=== PATIENT | male | born 1985 | race Caucasian/White ===

== ENCOUNTER 2016-08-03 15:58 | Inpatient (IN) | payer BC ==
[~2016-08-03] VITALS: Ht 167.6 cm; Wt 133.8 kg
--- NOTE | 2016-08-03 15:58 | NUR ---
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 PT AAO X4, AMB WITH STEADY GAIT. RR EVEN AND UNLABORED. PT PLACED IN GOWN AND MONITOR, CONTINUE TO MONITOR.
[2016-08-03] MEDS ORDERED: ONDANSETRON HCL/PF 4 MG/2 ML VIAL IVP ONE (16:30)
[2016-08-03] MEDS ORDERED: IV NS 0.9% 1,000 ML BAG IV ONE (16:30)
[2016-08-03] MEDS ORDERED: ONDANSETRON HCL/PF 4 MG/2 ML VIAL ONE (16:33)
[2016-08-03] MEDS ORDERED: IV NS 0.9% 1,000 ML ONE (16:33)
[2016-08-03] MEDS ORDERED: IV SET PRIMARY 1 EA INFUS.SET MC ONE (16:33)
[2016-08-03 16:49] LABS: BASOPHILS % (AUTO) 0.4 % (0.0-2.0); EOSINOPHILS # (AUTO) 0.3 /CMM (0.0-0.7); EOSINOPHILS % (AUTO) 3.4 % (0.0-6.0); HEMATOCRIT 43 % (39-51); HEMOGLOBIN 13.7 g/dL (13.5-17.5); LYMPHOCYTES # (AUTO) 1.6 /CMM (0.8-4.8); LYMPHOCYTES % (AUTO) 15.9 % (20.0-44.0); MEAN CORPUSCULAR HEMOGLOBIN 25 PG (26.0-33.0); MEAN CORPUSCULAR HGB CONC 32 g/dl (31.0-36.0); MEAN CORPUSCULAR VOLUME 79 fL (80-96); MONOCYTES # (AUTO) 0.3 /CMM (0.1-1.30); NEUTROPHILS # (AUTO) 7.6 /CMM (1.8-8.9); NEUTROPHILS % (AUTO) 77.3 % (43.0-81.0); PLATELET COUNT (AUTO) 194 /CMM (150-450); RDW COEFFICIENT OF VARIATION 14.7 (11.5-15.0); RED BLOOD CELL COUNT(AUTO) 5.42 MIL/uL (4.5-6.0); WHITE BLOOD COUNT (AUTO) 9.8 K/uL (4.3-11.0)
[2016-08-03] MEDS ORDERED: MECLIZINE HCL 25 MG TABLET PO STA (16:57)
[2016-08-03 16:58] LABS: CALCIUM, SERUM 9.8 mg/dL (8.5-10.1); CREATININE 1.4 mg/dL (0.6-1.3); POTASSIUM 3.5 mmol/L (3.5-5.1)
[2016-08-03] MEDS ORDERED: MECLIZINE HCL 25 MG TABLET ONE (17:00)
[2016-08-03 17:04] LABS: ALBUMIN 3.8 g/dL (3.4-5.0); BILIRUBIN,DIRECT 0.1 mg/dL (0.0-0.2); BILIRUBIN,TOTAL 0.3 mg/dL (0.2-1.0); TOTAL PROTEIN, SERUM 6.8 g/dL (6.4-8.2)
[2016-08-03] MEDS ORDERED: DIAZEPAM 5 MG/ML 2 ML DISP.SYRIN IV STA (18:03)
[2016-08-03] MEDS ORDERED: DIAZEPAM 5 MG/ML 2 ML DISP.SYRIN ONE (18:27)
[2016-08-03] MEDS ORDERED: DIAZEPAM 5 MG/ML 2 ML DISP.SYRIN IV ONE (18:30)
--- NOTE | 2016-08-03 18:36 | NUR ---
PT RESTING COMFORTABLY WITH EYES CLOSED. CONTINUE TO MONITOR CLOSELY
[2016-08-03] MEDS ORDERED: hydrALAZINE HCL IV 20 MG VIAL ONE ×2 (18:51→19:43)
[2016-08-03] MEDS ORDERED: hydrALAZINE HCL IV 20 MG VIAL IV STA ×2 (18:52→19:24)
[2016-08-03] MEDS ORDERED: IOHEXOL-350 100 ML VIAL IV ONE (19:11)
[2016-08-03] MEDS ORDERED: IV NS 0.9% 250 ML IV ONE (19:11)
--- NOTE | 2016-08-03 19:15 | NUR ---
RECEIVED REPORT FROM YOANDY MISHRA. CALLED RADIOLOGY FOR F/U.
--- NOTE | 2016-08-03 19:23 | NUR ---
PT TO CT.
[2016-08-03] MEDS ORDERED: METOCLOPRAMIDE HCL 10 MG/2 ML VIAL IV STA (19:26)
--- NOTE | 2016-08-03 19:30 | NUR ---
CAN NOT DO CT SCAN AT THIS TIME. PT IS VOMITING, ER WILL CALL WHEN READY.
[2016-08-03] MEDS ORDERED: METOCLOPRAMIDE HCL 10 MG/2 ML VIAL ONE (19:43)
--- NOTE | 2016-08-03 19:45 | NUR ---
PT RETURNED FROM CT.
--- NOTE | 2016-08-03 20:15 | NUR ---
PT TO CT.
--- NOTE | 2016-08-03 20:24 | NUR ---
PT RETURNED FROM CT.
--- NOTE | 2016-08-03 20:43 | NUR ---
Patient is resting comfortably in bed with eyes closed. Easily aroused. VSS
--- NOTE | 2016-08-03 21:13 | NUR ---
PAGED HOME [facility]NA [facility] DR MAINOR HANNAH
--- NOTE | 2016-08-03 21:15 | NUR ---
CALLED NURSING SUP FOR [facility]
--- NOTE | 2016-08-03 21:27 | NUR ---
PT GOING TO 117-2 [facility]
[2016-08-03] MEDS ORDERED: MAG HYDROX/AL HYDROX/SIMETH 30 ML UDC PO PRN (21:30)
[2016-08-03] MEDS ORDERED: ACETAMINOPHEN 325 MG TABLET PO PRN (21:30)
[2016-08-03] MEDS ORDERED: HYDROCODONE/APAP 5/325MG 1 EACH TABLET PO PRN (21:30)
[2016-08-03] MEDS ORDERED: MORPHINE SULFATE INJ 2 MG/ML DISP.SYRIN IV PRN (21:30)
[2016-08-03] MEDS ORDERED: Z GUARD REMEDY 2 OZ OINT TP PRN (21:30)
[2016-08-03] MEDS ORDERED: ZOLPIDEM TARTRATE 5 MG TABLET PO PRN (21:30)
[2016-08-03] MEDS ORDERED: MAGNESIUM HYDROXIDE 30 ML UDC PO PRN (21:30)
--- NOTE | 2016-08-03 21:30 | NUR ---
ROOM CHANGED TO [facility] 108
--- NOTE | 2016-08-03 22:08 | NUR ---
REPORT GIVEN TO YOANDY RICK FOR [facility]ED 108
[2016-08-03] MEDS ORDERED: DIAZEPAM 5 MG TABLET PO PRN (22:30)
--- NOTE | 2016-08-03 22:34 | NUR ---
PT TRANSFERED TO [facility] 108
[2016-08-03] MEDS ORDERED: MECLIZINE HCL 12.5 MG TABLET PO PRN (23:00)
[2016-08-03 23:14] VITALS: BP 177/103
[2016-08-03 23:15] VITALS: BP 167/93
[2016-08-04] VITALS (8 sets, daily range): BP systolic 95–176; BP diastolic 79–165
[2016-08-04] MEDS ORDERED: IV NS 0.9% 1,000 ML ONE (00:35)
[2016-08-04] MEDS ORDERED: IV SET PRIMARY PUMP SET 1 EA INFUS.SET MC ONE (00:35)
[2016-08-04] MEDS: IV NS 0.9% 1,000 ML IV PRN ×2 (00:42→16:01)
[2016-08-04] MEDS ORDERED: hydrALAZINE HCL IV 20 MG VIAL ONE ×2 (00:57→05:03)
[2016-08-04] MEDS: hydrALAZINE HCL IV 20 MG VIAL IV PRN ×3 (01:04→09:18)
--- NOTE | 2016-08-04 05:49 | NUR ---
new admit pt from home to ER due to dizziness, nausea and vomiting.pt dx with Vertigo,pt alert,oriented,ambulatory. pt noted with multiple rashes in the back which the says its a acne, konrad groin rashes,axillary rash.pt tried to eat sandwich last night but after 2 bites pt vomited.tolerated only juices and water all night.given 2 doses of hydralazine ivp.will continue to monitor.vss,afebrile. still having dizziness when getting of oob.intructed to get up slowly.all needs attended.call light at reached.
[2016-08-04 06:44] LABS: BASOPHILS % (AUTO) 0.3 % (0.0-2.0); EOSINOPHILS # (AUTO) 0.1 /CMM (0.0-0.7); EOSINOPHILS % (AUTO) 0.7 % (0.0-6.0); HEMATOCRIT 43 % (39-51); HEMOGLOBIN 13.6 g/dL (13.5-17.5); LYMPHOCYTES # (AUTO) 1.6 /CMM (0.8-4.8); LYMPHOCYTES % (AUTO) 14.7 % (20.0-44.0); MEAN CORPUSCULAR HEMOGLOBIN 26 PG (26.0-33.0); MEAN CORPUSCULAR HGB CONC 32 g/dl (31.0-36.0); MEAN CORPUSCULAR VOLUME 80 fL (80-96); MONOCYTES # (AUTO) 0.5 /CMM (0.1-1.30); MONOCYTES % (AUTO) 4.6 % (2.0-12.0); NEUTROPHILS # (AUTO) 8.7 /CMM (1.8-8.9); NEUTROPHILS % (AUTO) 79.7 % (43.0-81.0); PLATELET COUNT (AUTO) 230 /CMM (150-450); RDW COEFFICIENT OF VARIATION 15.8 (11.5-15.0); RED BLOOD CELL COUNT(AUTO) 5.32 MIL/uL (4.5-6.0); WHITE BLOOD COUNT (AUTO) 10.9 K/uL (4.3-11.0)
--- NOTE | 2016-08-04 07:30 | NUR ---
RN NOTES RECEIVED PATIENT IN BED ALERT, AWAKE, ORIENTED X 3 WITH BREATHING NORMAL, EVEN AND UNLABORED. NO SOB NOTED. ON ROOM AIR, SATURATING WELL. NO ACUTE DISTRESS NOTED. TELE MONITOR REVEALS SR, HR=80. IV LAC 18G IS PATENT AND INTACT, RUNNING IVF PER ORDER. KEPT CLEAN, DRY AND COMFORTABLE. ALL NEEDS ATTENDED. SAFETY MEASURE OBSERVED. CALL LIGHT WITH IN REACH. WILL CONT TO MONITOR.
[2016-08-04 07:34] LABS: ALBUMIN 3.6 g/dL (3.4-5.0); BILIRUBIN,TOTAL 0.4 mg/dL (0.2-1.0); CALCIUM, SERUM 9.2 mg/dL (8.5-10.1); CREATININE 1.4 mg/dL (0.6-1.3); MAGNESIUM 1.9 mg/dL (1.8-2.4); PHOSPHORUS 5.2 mg/dL (2.5-4.9); TOTAL PROTEIN, SERUM 6.7 g/dL (6.4-8.2)
[2016-08-04] MEDS: PANTOPRAZOLE 40 MG TABLET.DR PO SCH (08:37)
[2016-08-04] MEDS: ONDANSETRON HCL/PF 4 MG/2 ML VIAL IVP PRN ×2 (08:39→16:58)
--- NOTE | 2016-08-04 08:58 | NUR ---
WOUND CARE CONSULT: PT PRESENTS WITH ABILITY TO TURN AND REPOSITION IN BED. PT IS CONTINENT. PT REPORTS CHRONIC REDNESS TO LOWER LEGS AND AXILLAE AND ALSO ACNE TO HIS BACK. GROIN AREAS NOTED TO HAVE REDNESS AND RASH. RECOMMENDATIONS MADE AND DISCUSSED WITH NURSING STAFF FOR SKIN CARE AND PROTECTION. DEFER TO MD FOR BACK RASH/ACNE CONDITION. WILL SEE ANNETTA. IN AGREEMENT WITH PLAN OF CARE. Addendum: 08/04/16 at 0900 by ARYAN MALLORY Amended: Links added. Addendum: 08/04/16 at 0901 by ARYAN MALLORY CALLUSES NOTED TO PLANTAR FEET. PT DENIES ANY DISCOMFORT. NO DRAINAGE OR REDNESS NOTED.
[2016-08-04] MEDS: CLOTRIMAZOLE 1% 15 GM TUBE TP SCH ×2 (09:41→16:01)
[2016-08-04] MEDS ORDERED: MECLIZINE HCL 12.5 MG TABLET PO SCH (16:30)
--- NOTE | 2016-08-04 19:13 | NUR ---
RN NOTES PATIENT ENDORSED TO NEXT SHIFT IN STABLE CONDITION WITH BREATHING NORMAL, EVENT AND UNLABORED. NO SOB NOTED. NO ACUTE DISTRESS NOTED. KEPT CLEAN, DRY AND COMFORTABLE. ALL NEEDS ATTENDED. SAFETY MEASURE OBSERVED. CALL LIGHT WITH IN REACH. WILL CONT TO MONITOR.
--- NOTE | 2016-08-04 19:30 | NUR ---
RN NOTES RECEIVED PT AWAKE ALERT ORIENTED X 3. ABLE TO MAKE KNOWN NEEDS AND VERBALIZED FEELINGS. NO SOB ON RA. SR 85 ON TELE MONITOR. PT STATED STILL FEELING LITTLE BIT DIZZY BUT HE FEELS MUCH BETTER THAN YESTERDAY. AFEBRILE. NO SOB OR DISTRESS. AMBULATE TO THE BATHROOM. IV SITE ON LAC G 18 AND RIGHT HAND G 18 RUNNING WITH NS @ 75 CC/HR INTACT AND PATENT. REMINDED PT TO WALK CAREFULLY AND SLOWLY AND ASKED FOR ASSISTANCE FOR SAFETY. KEPT PT CLEAN AND COMFORTABLE IN BED WILL CONTINUE TO MONITOR.
[2016-08-04] MEDS: MECLIZINE HCL 25 MG TABLET PO SCH (21:44)
[2016-08-05] VITALS: BP 150/85
[2016-08-05 04:00] VITALS: BP 172/101
[2016-08-05] MEDS: MECLIZINE HCL 25 MG TABLET PO SCH ×2 (04:38→13:00)
[2016-08-05] MEDS: hydrALAZINE HCL IV 20 MG VIAL IV PRN ×2 (04:38→11:50)
--- NOTE | 2016-08-05 05:10 | NUR ---
RN NOTES RECHECKED BP AFTER 30 MINUTES GIVING HYDRALAZINE LATEST BP 140/90 HR 66 SATING WELL AT 96% WILL CONTINUE TO MONITOR.
--- NOTE | 2016-08-05 06:44 | NUR ---
RN NOTES PT REMAINED IN STABLE CONDITION WANTED TO GO HOME PT STATED THAT HE FEELS BETTER TODAY AND IF HE CAN GO HOME. INFORMED HIM REGARDING THE PLAN OF CARE . PT VERBALIZED UNDERSTANDING WILL WAIT TO MD TO ASK. . KEPT PT CLEAN AND COMFORTABLE IN BED. ALL NEEDS ATTENDED. WILL ENDORSED CONTINUITY OF CARE TO AM NURSE.
--- NOTE | 2016-08-05 07:20 | NUR ---
RN INITIAL NOTES RECEIVED PT IN BED, ASLEEP, EASY TO AROUSE, PT IS ABLE TO MAKE NEEDS KNOWN, PT IS ON RA, SATING WELL, NO S/S OF RESP. DISTRESS OR SOB AT THIS TIME, PT IS ON TELE MONITOR SHOWING SR @ 61 BPM, NO C/O FO CHEST PAIN OR DISCOMFORT AT THIS TIME, PT IS NOTED WITH MULTIPLE SKIN ISSUES, PT HAS LAC # 18,SL, R HAND #18G, RUNNING NS @ 75ML/HR, C/D/I/PATENT, FLUSHING WELL, NO S/S OF INFECTION/ INFILTRATION NOTED AT THIS TIME, ALL SAFETY MEASURES IN PLACE AT ALL TIMES, CALL LIGHT WITHIN EASY REACH, WILL MONITOR PT CLOSELY FOR CHANGES.
[2016-08-05 08:00] VITALS: BP 157/92
[2016-08-05] MEDS: PANTOPRAZOLE 40 MG TABLET.DR PO SCH (08:13)
[2016-08-05] MEDS: IV NS 0.9% 1,000 ML IV PRN (08:14)
[2016-08-05] MEDS: CLOTRIMAZOLE 1% 15 GM TUBE TP SCH (08:14)
[2016-08-05] MEDS ORDERED: LISINOPRIL (20MG) 20 MG TABLET PO SCH (11:30)
[2016-08-05 12:10] VITALS: BP 165/107
--- NOTE | 2016-08-05 12:28 | NUR ---
CLIENT ACCOUNT MANAGER NOTES RECEIVED DISCHARGE ORDERS, MD INSTRUCTED PT ON DISCHARGE INSTRUCTIONS, IV REMOVED, PT AT BEDSIDE, ALL QUESTIONS AND CONCERNS ANSWERED, ALL MEDICATIONS AND MD ORDERS CARRIED OUT, ALL BELONGINGS WITH PT, BELONGINGS LIST SIGNED, ALL DISCHARGE PAPERWORK SIGNED AND WITH PT, RX WITH PT, PT REFUSED PHOTOS TO BE TAKEN, TELE BOX REMOVED, PT INSTRUCTED ON NEW MEDICATION, PT INSTRUCTED TO FOLLOW UP WITH MDS, PT VERBALIZED UNDERSTANDING. PT WILL BE GOING HOME WITH , INSTRUCTED PT ON LOW SODIUM DIET, PT WAS TAKEN TO AWAITING CAR BY WHEELCHAIR
== END 2016-08-05 13:06 | disposition home or self-care (01) | DRG 149 ==
LOC: ER 15:59 → TELE-TD 21:50
PROVIDERS: ADMIT Family Medicine; ATTEND Family Medicine
DX: H81.10 Benign paroxysmal vertigo, unspecified ear (principal); I67.4 Hypertensive encephalopathy; I16.0 Hypertensive urgency; N28.9 Disorder of kidney and ureter, unspecified; H05.89 Other disorders of orbit; H55.09 Other forms of nystagmus; E66.01 Morbid (severe) obesity due to excess calories; I10 Essential (primary) hypertension; E86.0 Dehydration; H57.8 Other specified disorders of eye and adnexa; H91.90 Unspecified hearing loss, unspecified ear
CPT/HCPCS: 36415; 70450-TC; 70496-TC; 70498-TC; 70553-TC; 80048-TC; 80053-TC; 80061-TC; 80076-TC; 83690-TC; 83735-TC; 84100-TC; 85025-TC; 87081-TC; A4606; J0360; J2405; J2765; J3360; J7030; J7050; J8597; Q9967; Z7610